=== PATIENT | male | born 2000 | race Caucasian/White ===

== ENCOUNTER 2021-05-23 13:44 | Emergency (ER) | payer OTHER, SELFPAY ==
--- NOTE | ~2021-05-23 | XR_ITS ---
EXAMINATION: XR WRIST-BILATERAL CLINICAL INFORMATION: Bilateral wrist injury. History of deformity of both fifth digits since . COMPARISON: None TECHNIQUE: 4 views each of both wrists were obtained. FINDINGS: Right wrist: The bony alignments are intact. The cortices are intact. Articular margins, joint space appear unremarkable. Soft tissues are unremarkable. Fixed flexion deformities noted at the PIP joint of the fifth digit, appears similar to the contralateral left side. Left wrist: The bony alignments are intact. The cortices are intact. Articular margins, joint space appear unremarkable. Soft tissues are unremarkable. Fixed flexion deformities noted at the PIP joint of the fifth digit, appears similar to the contralateral right side. XR/XR hand wrist RT IMPRESSION: No radiographic evidence of any acute osseous or articular abnormalities identified within the wrists. Fixed flexion deformity at the PIP joint of both fifth digits, apparently present since .
--- NOTE | ~2021-05-23 | XR_ITS ---
EXAMINATION: XR WRIST-BILATERAL CLINICAL INFORMATION: Bilateral wrist injury. History of deformity of both fifth digits since . COMPARISON: None TECHNIQUE: 4 views each of both wrists were obtained. FINDINGS: Right wrist: The bony alignments are intact. The cortices are intact. Articular margins, joint space appear unremarkable. Soft tissues are unremarkable. Fixed flexion deformities noted at the PIP joint of the fifth digit, appears similar to the contralateral left side. Left wrist: The bony alignments are intact. The cortices are intact. Articular margins, joint space appear unremarkable. Soft tissues are unremarkable. Fixed flexion deformities noted at the PIP joint of the fifth digit, appears similar to the contralateral right side. XR/XR hand wrist LT IMPRESSION: No radiographic evidence of any acute osseous or articular abnormalities identified within the wrists. Fixed flexion deformity at the PIP joint of both fifth digits, apparently present since .
[2021-05-23 13:47] VITALS: PULSE 67; RESP 18; TEMP 36.3; O2SAT 98; BMI 31.2
[2021-05-23 14:17] VITALS: BP 131/80; PULSE 71; RESP 18; TEMP 36.5; O2SAT 98
[2021-05-23 15:41] VITALS: BP 116/77; PULSE 61; RESP 17; TEMP 36.1; O2SAT 99
--- NOTE | 2021-05-23 16:57 | ED.GENADULT ---
HPI - General Adult General Chief complaint: General Medical Stated complaint: work inj Time Seen by Provider: 05/23/21 15:19 Source: patient Mode of arrival: ambulatory Limitations: no limitations History of Present Illness HPI narrative: Patient presents to ED for bilateral hand pain. Patient is on the 150lb concrete concrete pole fell on both hands. Patient has right palm laceration and left thumb abrasion. Patient denies concrete bople fall unto his or any other part of his body. Patient had helmet on. Patient states history of chronic flexions of bilateral pinky fingers since . Patient states up-to-date with tetanus. Related Data Previous Rx's Medication Instructions Recorded cephalexin 500 mg capsule 500 mg PO QID 7 Days #28 cap 05/23/21 naproxen 500 mg tablet 500 mg PO BID PRN 10 Days #20 tab 05/23/21 prednisone 20 mg tablet 40 mg PO DAILY 5 Days #10 tab 05/23/21 Allergies Allergy/AdvReac Type Severity Reaction Status Date / Time No Known Allergies Allergy Verified 05/23/21 16:53 Review of Systems Review of Systems: Yes all other systems are reviewed and are negative Constitutional: Constitutional: Reports as per HPI and Reports no additional constitutional complaints Eyes: Eyes: Reports as per HPI and Reports no additional eye complaints ENT: Reports system reviewed and no additional complaints, except as documented and Reports as per HPI Cardiovascular: Cardiovascular: Reports as per HPI and Reports no additional cardiovascular complaints Respiratory: Respiratory: Reports as per HPI and Reports no additional respiratory complaints Gastrointestinal: Gastrointestinal: Reports as per HPI and Reports no additional gastrointestinal complaints Genitourinary: Genitourinary: Reports no additional male genitourinary complaints and Reports as per HPI Musculoskeletal: Musculoskeletal: Reports no additional musculoskeletal complaints, Reports as per HPI and Reports arthralgias (Bilateral hand pain) COUNT INCLUDES THE [facility] Social History Social History Advance Directives: No Advance Directives Information Provided: Yes Physical Exam Vital Signs: Vital Signs: Last Vital Signs Temp 97.0 F 05/23/21 15:41 Pulse 61 05/23/21 15:41 Resp 17 05/23/21 15:41 BP 116/77 05/23/21 15:41 Pulse Ox 99 05/23/21 15:41 BMI result Body Mass Index 31.2 Const: General: cooperative, healthy appearing, comfortable, no acute distress, well developed, alert, awake and Physically active Orientation/consciousness: patient oriented x3 HENMT: Head: Yes normal to inspection, Yes No palpable skull fracture present, Yes normocephalic, Yes atraumatic and No abrasion Eyes: General: appearance normal, both eyes and all related structures Neck: Neck: Yes normal visual inspection, Yes full ROM, Yes no lymphadenopathy, Yes no meningeal signs, Yes trachea midline, Yes supple, No anterior neck swelling and No tender Chest: Chest palpation & inspection: normal inspection of the chest and normal palpation of entire chest wall Resp: Effort & Inspection: normal respiratory effort and able to speak in complete sentences Auscultation: clear to auscultation bilaterally Cardio: Jugular venous distension: no JVD Heart sounds: S1 normal heart sound present and S2 normal heart sound present GI: Inspection: Yes normal to inspection and No abdominal wall ecchymosis Palpation (GI): Soft to palpation, not firm, nontender, no guarding and not rigid : General: No CVA tenderness and Yes no CVA tenderness Back/Spine/Pelvis: Back: no CVA tenderness, No CVA tenderness and No back tenderness Skin: General skin exam: no rashes or lesions noted and elasticity normal Neuro: General: patient oriented x3, gait normal, no meningeal signs and CN's II-XI intact bilaterally Cranial nerves: Yes CN's II-XII intact bilaterally Extrem: General: Yes normal to inspection and Yes full ROM Hand/finger images: 1. Complete skin tear/abrasion. No active bleeding. Patient has complete range of motion all fingers including thumb. Capillary refill is intact. Radial pulse intact. Motor, neuro, and vascular exam is intact. 2. Laceration. Mild active bleeding. Patient able to flex and extend fingers but limited due to significant pain. Negative for ecchymosis or deformity. vascular/neuro exam intact. Motor exam limited due to pain. Negative for wrist drop. Psych: Appearance: grossly normal, well kempt and not disheveled Course Course Course Narrative: Patient sent for x-rays. Reevaluation(s) Reevaluation #1: X-rays bilaterally negative for fracture or dislocation. Left thumb skin tear placed with Xeroform after being clean with normal saline and Betadine. Laceration right palm clean with sterile saline and Betadine iodine. Taking 2% 5 mL injected into wound. Nylon size 3 sutures used. Two sutures placed. Patient able to flex and extend both wrists. Negative for signs of wrist drop. contusion cause of significant decrease in movement of fingers due a 150 lb concrete falling on hand. Patient informed he will be discharged with antibiotics, steroids and anti-inflammatory medication. Patient informed if movement in fingers does not improve he should call hand surgeon tomorrow to make sure there is no ligaments/tendon/nerve injury and also should follow up with [facility]. Time: 17:34 Medical Decision Making MDM Narrative Medical decision making narrative: Hand contusion Discharge Plan Discharge Clinical Impression: Contusion of hand, Hand laceration Patient Disposition: Home, Self-Care Instructions: Laceration (ED), Contusion in Adults (ED) Additional Instructions: X-rays came back negative for any fracture. Diagnosis hand contusion. He will be discharged with antibiotics to prevent infection due to open wound and still concrete filling the hand. You able to move fingers in the right hand, but limited due to trauma/hand contusion with likely pain. This does not improve I recommend calling our hand surgeon for re-evaluation of hand to make sure there is no ligaments/tendon/nerve injury in your hand. Please follow-up with your worker's compensation. Return to the ED for worsening pain, swelling, redness, pus discharge, foul odor, bluish black discoloration of fingers, paralysis of hand/wrist, inability to move fingers, or any other concerning symptoms. Sutures should be removed in 8 days. Prescriptions: New naproxen 500 mg tablet 500 mg PO BID PRN (Reason: pain) 10 Days Qty: 20 RF: 0 cephalexin 500 mg capsule 500 mg PO QID 7 Days Qty: 28 RF: 0 prednisone 20 mg tablet 40 mg PO DAILY 5 Days Qty: 10 RF: 0 Referrals: [facility] [Outside] - 2 days (150 lb concrete fell on hand at work.) Amanda Coley MD [Physician] - 2 days (150 pound concrete fell on hand. xray normal. decrease range of motion of right hand fingers. Will need to revaluation to make sure there is no tendon/ligament/nerve injury.) Stand Alone Forms: Work/School Release Interventions: ED Discharge Assessment Last Done: 05/23/21 18:18 Discharge Date/Time: 05/23/21 18:21 Print Language: Thai
[2021-05-23] MEDS: Ibuprofen 800 MG TABLET PO (17:06)
[2021-05-23] MEDS: Lidocaine HCl 2 % MPF 5 ML VIAL INFILTRATI ×2 (17:07)
--- NOTE | 2021-05-23 18:16 | PC.NURSE ---
BILATERAL WOUNDS TO HAND CLEANED WITH NORMAL SALINE SUTURES APPLIED BY SALLY MCCONNELL TO RIGHT PALM. LEFT THUMB XEROFORM DSD APPLIED BOTH HANDS COVERED WITH DSD.
== END 2021-05-23 18:21 | disposition home or self-care (01) ==
PROVIDERS: Emergency Provider Emergency Medicine
DX: S61.411A Laceration without foreign body of right hand, initial encounter (principal); S60.222A Contusion of left hand, initial encounter; S60.221A Contusion of right hand, initial encounter; M79.642 Pain in left hand; M79.641 Pain in right hand; W20.8XXA Other cause of strike by thrown, projected or falling object, initial encounter; Y93.9 Activity, unspecified; Y92.9 Unspecified place or not applicable; Y99.0 Civilian activity done for income or pay
CPT/HCPCS: 12002; 73110; 73130; 99284

== ENCOUNTER 2021-05-30 08:18 | Outpatient (REF) | payer OTHER, SELFPAY ==
--- NOTE | ~2021-05-30 | XR_ITS ---
EXAMINATION: XR HAND, RIGHT XR HAND, LEFT CLINICAL INFORMATION: Pain. COMPARISON: Bilateral hand and wrist radiographs dated 05/23/2021. TECHNIQUE: AP, oblique, lateral, and [place] views of the right hand. PA view of the left hand with oblique and lateral views of the left thumb. FINDINGS: Right hand: No acute fracture or dislocation. No joint space narrowing or marginal osteophyte. No osseous erosion. No abnormal soft tissue calcification. Persistent flexion of the 5th proximal interphalangeal joint, unchanged. Left hand: No acute fracture or dislocation. No joint space narrowing or marginal osteophytes. No osseous erosion. No abnormal soft tissue calcification. Persistent flexion of the 5th proximal interphalangeal joint, unchanged. XR/XR hand RT min 3V IMPRESSION: No acute osseous abnormality.
--- NOTE | ~2021-05-30 | XR_ITS ---
EXAMINATION: XR HAND, RIGHT XR HAND, LEFT CLINICAL INFORMATION: Pain. COMPARISON: Bilateral hand and wrist radiographs dated 05/23/2021. TECHNIQUE: AP, oblique, lateral, and [place] views of the right hand. PA view of the left hand with oblique and lateral views of the left thumb. FINDINGS: Right hand: No acute fracture or dislocation. No joint space narrowing or marginal osteophyte. No osseous erosion. No abnormal soft tissue calcification. Persistent flexion of the 5th proximal interphalangeal joint, unchanged. Left hand: No acute fracture or dislocation. No joint space narrowing or marginal osteophytes. No osseous erosion. No abnormal soft tissue calcification. Persistent flexion of the 5th proximal interphalangeal joint, unchanged. XR/XR hand LT min 3V IMPRESSION: No acute osseous abnormality.
== END 2021-05-30 08:19 | disposition home or self-care (01) ==
LOC: HO.HOSX 08:18
PROVIDERS: Visit Provider Physician Assistant
DX: S60.221A Contusion of right hand, initial encounter (principal); S60.222A Contusion of left hand, initial encounter; S67.22XA Crushing injury of left hand, initial encounter; S67.21XA Crushing injury of right hand, initial encounter
CPT/HCPCS: 73130; 99202

== ENCOUNTER → 2021-06-20 09:25 | Outpatient (BNVA) | payer OTHER, SELFPAY | PROVIDERS: Visit Provider Orthopaedic Surgery | DX: S67.21XD Crushing injury of right hand, subsequent encounter (principal); S67.22XD Crushing injury of left hand, subsequent encounter; S60.221D Contusion of right hand, subsequent encounter; S60.222D Contusion of left hand, subsequent encounter | CPT/HCPCS: 99212 ==

== ENCOUNTER → 2021-07-21 12:02 | Outpatient (BNVA) | payer OTHER, SELFPAY | PROVIDERS: Visit Provider Physician Assistant | DX: S67.21XD Crushing injury of right hand, subsequent encounter (principal); S67.22XD Crushing injury of left hand, subsequent encounter; S60.221D Contusion of right hand, subsequent encounter; S60.222D Contusion of left hand, subsequent encounter | CPT/HCPCS: 99212 ==

== ENCOUNTER → 2021-10-24 08:09 | Outpatient (BNVA) | payer BC, OTHER, SELFPAY | PROVIDERS: Visit Provider Physician Assistant | DX: Z13.89 Encounter for screening for other disorder (principal) ==